=== PATIENT | female | born 1995 | race African-American/Black ===

== ENCOUNTER 2025-02-25 11:27 | Emergency (ER) | payer OTHER ==
--- NOTE | 2025-02-25 12:21 | RAD REPORT ---
Transvaginal Study Probe CLINICAL INDICATION: Female 30 years old VAGINAL BLEEDING TECHNIQUE: Real-time ultrasonography of the pelvis was performed transvaginally. Color and spectral D oppler evaluation of the ovaries was performed. [id number]. COMPARISON: No prior exam. FINDINGS: UTERUS AND CERVIX: The uterus measures 8.9 x 4.2 x 5.6 cm (cervix to fundus x AP x transverse). The u terus is normal. No masses seen . The endometrium is normal,13 mm thickness. RIGHT OVARY: Normal The right ovary measures 3.9 x 1.8 x 2.6 cm with volume of 9.3 mL. Normal color a nd spectral Doppler evaluation of the right ovary.. LEFT OVARY: Normal The left ovary measures 3.1 x 1.9 x 2.6 cm with volume of 8 mL. Normal Color and spectral Doppler evaluation of the left ovary.. FREE FLUID: No free fluid. IMPRESSION: 1. No acute findings identified. Endometrial thickness is within normal limits for patient's age. 2. Bilateral ovarian blood flow.
[2025-02-25 12:43] LABS: Absolute Basophils 0.1 K/uL (0-0.5); Absolute Eosinophils 0.2 K/uL (0-0.5); Absolute Lymphocytes (CBC) 2.3 K/uL (0.7-4.9); Absolute Monocytes 0.4 K/uL (0.1-1.3); Absolute Neutrophil 4.9 K/uL (1.8-8.0); Basophils % 1.5 % (0-1.3); Eosinophils % 2.4 % (0-4.4); Hemoglobin 11.4 g/dL (12.0-15.0); Lymphocytes % 29.2 % (15.3-44.8); MCH 28.4 pg (27.0-35.0); MCHC 33.6 g/dL (32.0-36.0); MCV 84.5 fL (80-100); MPV 8.2 fL (7.6-11.3); Monocytes % 5.2 % (3.3-12.3); Neutrophils % 61.7 % (41.7-73.7); Nucleated Red Blood Cells % 0.1 % (0-0); Platelets 396 thou/uL (152-406); RBC Red Blood Cell Count 4.03 M/uL (3.86-4.86); Red Cell Distribution Width 15.6 % (12.1-15.2)
[2025-02-25 13:02] LABS: Anion Gap 7.7 mEq/L (5.0-15.0); BUN Blood Urea Nitrogen 10 mg/dL (7-18); Bicarbonate 28 mEq/L (21-32); Glomerular Filtration Rate 86 ml/min (=/>90); Glucose Level 101 mg/dL (74-106); Potassium 3.7 mEq/L (3.5-5.1); Sodium Level 140 mEq/L (136-145)
[2025-02-25 13:05] LABS: HCG, Quantitative < 1 mIU/mL (1-3)
--- NOTE | 2025-02-25 14:11 | ER ---
Nurse's Notes [facility] Name: Francesca Guzman Age: 30 yrs Sex: Female : 1995 Arrival Date: 02/25/2025 Time: 11:27 Bed 12 Private MD: Diagnosis: Other specified abnormal uterine and vaginal bleeding Presentation: 02/25 12:20 Chief complaint: Patient states: Vaginal bleeding started today, dark blood (medium ll1 amount) with small clots. Just finished 02/18. Coronavirus screen: Client denies travel out of the [place] in the last 14 days. At this time, the client does not indicate any symptoms associated with coronavirus-19. Ebola Screen: Patient denies travel to an Ebola-affected area in the 21 days before illness onset. Initial Sepsis Screen: Does the patient meet any 2 criteria? No. Patient's initial sepsis screen is negative. Does the patient have a suspected source of infection? No. Patient's initial sepsis screen is negative. Risk Assessment: Do you want to hurt yourself or someone else? Patient reports no desire to harm self or others. Onset of symptoms was February 25, 2025. 12:20 Method Of Arrival: Ambulatory ll1 12:20 Acuity: YNES 3 ll1 Triage Assessment: 12:20 General: Appears in no apparent distress. Behavior is calm, cooperative, appropriate ll1 for age. Pain: Denies pain. : Reports vaginal bleeding that is brown, with clots, moderate flow. Historical: - Allergies: 12:20 Nuts; ll1 - Home Meds: 12:20 None [Active]; ll1 - PMHx: 12:20 None; ll1 - PSHx: 12:20 section; ll1 - Immunization history:: Adult Immunizations up to date. - Infectious Disease History:: Denies. - Social history:: Smoking status: Patient denies any tobacco usage or history of. - Family history:: not pertinent. Screenin:37 [facility] ED Fall Risk Assessment (Adult) History of falling in the last 3 months, ph including since admission No falls in past 3 months (0 pts) Confusion or Disorientation No (0 pts) Intoxicated or Sedated No (0 pts) Impaired Gait No (0 pts) Mobility Assist Device Used No (0 pt) Altered Elimination No (0 pt) Score/Fall Risk Level 0 - 2 = Low Risk Oriented to surroundings, Maintained a safe environment, Hourly rounding (assess needs \T\ fall precautionary measures) done. Abuse screen: Denies threats or abuse. Denies injuries from another. Nutritional screening: No deficits noted. Tuberculosis screening: No symptoms or risk factors identified. Assessment: 13:22 Reassessment: No changes from previously documented assessment. Patient and/or family ll1 updated on plan of care and expected duration. Pain level reassessed. 13:30 General: Appears in no apparent distress. Behavior is calm, cooperative. Pain: Denies ph pain. Neuro: Level of Consciousness is awake, alert, obeys commands, Oriented to person, place, time, situation. Cardiovascular: Capillary refill < 3 seconds in bilateral fingers. Respiratory: Airway is patent Respiratory effort is even, unlabored. GI: No signs and/or symptoms were reported involving the gastrointestinal system. : Reports vaginal bleeding that is moderate flow. Derm: Skin is pink, warm \T\ dry. Vital Signs: 12:20 BP 139 / 76; Pulse 81; Resp 18; Temp 97.6; Pulse Ox 100% ; Weight 128.37 kg; Height 5 ll1 ft. 6 in. ; Pain 0/10; 13:30 BP 138 / 78; Pulse 86; Resp 18; Temp 97.9; Pulse Ox 100% on R/A; ph 14:36 BP 127 / 86; Pulse 78; Resp 18; Temp 97.2; Pulse Ox 98% on R/A; ph 12:20 Body Mass Index 45.68 (128.37 kg, 167.64 cm) ll1 12:20 Pain Scale: Adult ll1 ED Course: 11:30 Patient arrived in ED. im 11:33 Alexander Eng MD is Attending Physician. gretel 12:14 US Transvaginal Study (Probe) In Process Unspecified. EDMS 12:22 Triage completed. ll1 12:22 Arm band placed on. ll1 12:25 Test, Urine Sent. ll1 12:34 Quantitative Hcg Sent. bc6 12:34 Abo/rh Typing Sent. bc6 12:34 Basic Metabolic Panel Sent. bc6 12:34 CBC with Diff Sent. bc6 12:34 Initial lab(s) drawn, by ak, sent to lab. Inserted saline lock: 20 gauge in left bc6 antecubital area, using aseptic technique. Blood collected. Flushed with 10 mL NS. 13:15 Geni Horta, RN is Primary Nurse. ph 13:22 Patient placed in an exam room, on a stretcher. ll1 14:38 Patient has correct armband on for positive identification. Bed in low position. Call ph light in reach. Side rails up X 1. Door closed. Noise minimized. Warm blanket given. 14:38 Assist provider with bone marrow aspiration. IV discontinued, intact, bleeding ph controlled, No redness/swelling at site. Pressure dressing applied. Administered Medications: 14:36 Not Given (Other Intervention Used): ns 0.9% 1000 ml IV at 1000 ml once; to be given as ph a bolus over 60 minutes Medication: 14:38 VIS not applicable for this client. ph Outcome: 14:11 Discharge ordered by . gretel 14:38 Discharged to home ambulatory, ph 14:38 Condition: good 14:38 Discharge instructions given to patient, Instructed on discharge instructions, follow up and referral plans. Demonstrated understanding of instructions, follow-up care, 14:39 Patient left the ED. ph Signatures: Dispatcher [employer] EDMS Alexander Eng MD MD cha Hall, Patricia, RN RN ph Colin Berg RN RN ll1 Rosette Mayers [facility] Laurie Pete Corrections: (The following items were deleted from the chart) 12:20 12:20 Allergies: No Known Allergies; ll1 ll1
--- NOTE | 2025-02-25 14:12 | EDPHYS ---
Physician Documentation [facility] Name: Francesca Guzman Age: 30 yrs Sex: Female : 1995 Arrival Date: 02/25/2025 Time: 11:27 Bed 12 Private MD: ED Physician Alexander Eng HPI: 02/25 13:57 This 30 yrs old Black Female presents to ER via Ambulatory with complaints of Vaginal gretel Bleeding. 13:57 The patient presents with vaginal bleeding that is light. Onset: The symptoms/episode gretel began/occurred 1 day(s) ago. Modifying factors: The symptoms are alleviated by nothing, the symptoms are aggravated by nothing. Associated signs and symptoms: The patient has no apparent associated signs or symptoms. Severity of symptoms: At their worst the symptoms were mild, in the emergency department the symptoms are unchanged. The patient is sexually active, reportedly has a single partner. Historical: - Allergies: 12:20 Nuts; ll1 - Home Meds: 12:20 None [Active]; ll1 - PMHx: 12:20 None; ll1 - PSHx: 12:20 section; ll1 - Immunization history:: Adult Immunizations up to date. - Infectious Disease History:: Denies. - Social history:: Smoking status: Patient denies any tobacco usage or history of. - Family history:: not pertinent. ROS: 13:57 Constitutional: Negative for fever, chills, and weight loss, Eyes: Negative for injury, gretel pain, redness, and discharge, ENT: Negative for injury, pain, and discharge, Neck: Negative for injury, pain, and swelling, Cardiovascular: Negative for chest pain, palpitations, and edema, Respiratory: Negative for shortness of breath, cough, wheezing, and pleuritic chest pain, Abdomen/GI: Negative for abdominal pain, nausea, vomiting, diarrhea, and constipation, Back: Negative for injury and pain, MS/Extremity: Negative for injury and deformity, Skin: Negative for injury, rash, and discoloration, Neuro: Negative for headache, weakness, numbness, tingling, and seizure, Psych: Negative for depression, anxiety, suicide ideation, homicidal ideation, and hallucinations, Allergy/Immunology: Negative for hives, rash, and allergies, Endocrine: Negative for neck swelling, polydipsia, polyuria, polyphagia, and marked weight changes, Hematologic/Lymphatic: Negative for swollen nodes, abnormal bleeding, and unusual bruising, 13:57 : Positive for vaginal bleeding, Exam: 13:57 Constitutional: This is a well developed, well nourished patient who is awake, alert, gretel and in no acute distress. Head/Face: Normocephalic, atraumatic. Eyes: Pupils equal round and reactive to light, extra-ocular motions intact. Lids and lashes normal. Conjunctiva and sclera are non-icteric and not injected. Cornea within normal limits. Periorbital areas with no swelling, redness, or edema. ENT: Nares patent. No nasal discharge, no septal abnormalities noted. Tympanic membranes are normal and external auditory canals are clear. Oropharynx with no redness, swelling, or masses, exudates, or evidence of obstruction, uvula midline. Mucous membranes moist. Neck: Trachea midline, no thyromegaly or masses palpated, and no cervical lymphadenopathy. Supple, full range of motion without nuchal rigidity, or vertebral point tenderness. No Meningismus. Chest/axilla: Normal chest wall appearance and motion. Nontender with no deformity. No lesions are appreciated. Cardiovascular: Regular rate and rhythm with a normal S1 and S2. No gallops, murmurs, or rubs. Normal PMI, no JVD. No pulse deficits. Respiratory: Lungs have equal breath sounds bilaterally, clear to auscultation and percussion. No rales, rhonchi or wheezes noted. No increased work of breathing, no retractions or nasal flaring. Abdomen/GI: Soft, non-tender, with normal bowel sounds. No distension or tympany. No guarding or rebound. No evidence of tenderness throughout. Back: No spinal tenderness. No costovertebral tenderness. Full range of motion. Skin: Warm, dry with normal turgor. Normal color with no rashes, no lesions, and no evidence of cellulitis. MS/ Extremity: Pulses equal, no cyanosis. Neurovascular intact. Full, normal range of motion., bilateral aka Neuro: Awake and alert, GCS 15, oriented to person, place, time, and situation. Cranial nerves II-XII grossly intact. Motor strength 5/5 in all extremities. Sensory grossly intact. Cerebellar exam normal. Normal gait. Psych: Awake, alert, with orientation to person, place and time. Behavior, mood, and affect are within normal limits. Vital Signs: 12:20 BP 139 / 76; Pulse 81; Resp 18; Temp 97.6; Pulse Ox 100% ; Weight 128.37 kg; Height 5 ll1 ft. 6 in. ; Pain 0/10; 13:30 BP 138 / 78; Pulse 86; Resp 18; Temp 97.9; Pulse Ox 100% on R/A; ph 14:36 BP 127 / 86; Pulse 78; Resp 18; Temp 97.2; Pulse Ox 98% on R/A; ph 12:20 Body Mass Index 45.68 (128.37 kg, 167.64 cm) ll1 12:20 Pain Scale: Adult ll1 MDM: 11:33 Medical Screening Exam initiated gretel 14:07 Differential diagnosis: dysmenorrhea, endometriosis, menometrorrhagia, menorrhea, gretel postcoital bleeding, uterine fibroids, urinary tract infection. Data reviewed: vital signs, nurses notes, lab test result(s), radiologic studies, ultrasound. Consideration of Admission/Observation Escalation of care including admission/observation considered. I considered the following discharge prescriptions or medication management in the emergency department Medications were administered in the Emergency Department. See MAR. Independent interpretation of the following test(s) in the Emergency Department Radiology Department Ultrasound: My interpretation is VAG PROBE USG. Care significantly affected by the following chronic conditions: Obesity, NONE. 02/25 11:34 Order name: Abo/rh Typing [facility] 02/25 11:34 Order name: Basic Metabolic Panel; Complete Time: 13:39 [facility] 02/25 11:34 Order name: CBC with Diff; Complete Time: 13:39 [facility] 02/25 11:34 Order name: Test, Urine; Complete Time: 13:39 [facility] 02/25 11:34 Order name: Quantitative Hcg; Complete Time: 13:39 [facility] 02/25 11:34 Order name: US Transvaginal Study (Probe); Complete Time: 13:39 [facility] 02/25 11:34 Order name: IV Saline Lock; Complete Time: 12:34 [facility] 02/25 11:34 Order name: Labs collected and sent; Complete Time: 12:34 [facility] 02/25 11:34 Order name: NPO; Complete Time: 12:34 [facility] Administered Medications: 14:36 Not Given (Other Intervention Used): ns 0.9% 1000 ml IV at 1000 ml once; to be given as ph a bolus over 60 minutes Disposition Summary: 02/25/25 14:11 Discharge Ordered Notes: Location: Home [facility] Problem: new gretel Symptoms: have improved gretel Condition: Stable gretel Diagnosis - Other specified abnormal uterine and vaginal bleeding gretel Followup: gretel - With: Private Physician - When: 2 - 3 days - Reason: Recheck today's complaints, Continuance of care, Re-evaluation by your physician Discharge Instructions: - Discharge Summary Sheet gretel - Abnormal Uterine Bleeding gretel - Menorrhagia gretel - Dysfunctional Uterine Bleeding gretel - Menorrhagia, [id number] gretel - Abnormal Uterine Bleeding, [id number] gretel Forms: - Medication Reconciliation Form gretel - Antibiotic Education gretel - Prescription Opioid Use gretel - Patient Portal Instructions gretel - Leadership Thank You Letter [facility] Signatures: Dispatcher [employer] EDAlexander Dimas MD MD cha Hall, Patricia, RN RN Colin Springer RN RN ll1 Corrections: (The following items were deleted from the chart) 12:20 12:20 Allergies: No Known Allergies; ll1 ll1
[2025-02-25 14:53] VITALS: O2SAT 100
[2025-02-25 15:07] VITALS: BP 138/78; TEMP 97.9
== END 2025-02-25 14:39 | disposition home or self-care (01) ==
LOC: ER 11:27
DX: N93.8 Other specified abnormal uterine and vaginal bleeding (principal)
CPT/HCPCS: 36415; 76830; 80048; 81025; 84702; 85025; 86900; 86901